=== PATIENT | male | born 1995 | race Caucasian/White ===

== ENCOUNTER 2016-04-06 03:08 | Emergency (ER) | payer OTHER ==
--- NOTE | 2016-04-06 05:21 | ED ORDER SUMMARY ---
..... Patient: CELINA DUBOIS OrderSheet [facility] VisitID: [id number] [place] [address] 21y, M Registration Date/Time: 04/06/2016 ORDER SHEET Weight: 65.7 kg (stated) Allergies: Iodine, Vicodin GENERAL ORDERS: Chest 2V Urgent (03:25 04/06/2016 Arianna Bowen) (Ack 3:28 IJurca ER Tech1) (4:45 JRomanelli R.N.) CT Head wo Cont Urgent (03:25 04/06/2016 Arianna Bowen) (Ack 3:28 IJurcbri ER Tech1) (4:45 JRomanelli R.N.) CT Sinus/Facial Bones wo Cont Urgent (03:04/06/2016 Arianna Bowen) (Ack 3:28 IJurca ER Tech1) (4:45 JRomanelli R.N.) Clavicle Left Urgent (03:04/06/2016 Arianna Bowen) (Ack 3:28 IJurca ER Tech1) (4:45 JRomanelli R.N.) Elbow 3 or 4V Left Urgent (03:26 04/06/2016 Arianna Bowen) (Ack 3:28 IJurca ER Tech1) (4:45 JRomanelli R.N.) Wrist 3 or 4V Left Urgent (03:26 04/06/2016 Arianna Bowen) (Ack 3:28 IJurca ER Tech1) (4:45 JRomanelli R.N.) Ice (03:27 04/06/2016 Arianna Bowen) (3:27 IJurca ER Tech1) Sling - arm (05:16 04/06/2016 Arianna Bowen) (5:19 HSoule) MEDICATION ORDERS: - (oxycodone 5 mg PO once now) (03:26 04/06/2016 Arianna Bowen) (4:01 omannahum R.N.) Toradol IM 60 mg (NOW) (04:30 04/06/2016 Arianna Bowen) (4:45 JRomannahum R.N.) IV FLUIDS: ORDER SHEET NOTES: [Electronically signed by Orlando Rivera R.N. (06:16 04/06/2016)] [Electronically signed by Macho Gonzales Dr. (10:38 04/07/2016)] [Electronically locked/signed by Orladno Rivera R.N. (06:16 04/06/2016)]
--- NOTE | 2016-04-06 05:21 | ED ORDER SUMMARY ---
..... Patient: CELINA DUBOIS OrderSheet [facility] VisitID: [id number] [place] [address] 21y, M Registration Date/Time: 04/06/2016 ORDER SHEET Weight: 65.7 kg (stated) Allergies: Iodine, Vicodin GENERAL ORDERS: Chest 2V Urgent (03:25 04/06/2016 Arianna Bowen) (Ack 3:28 IJurca ER Tech1) (4:45 JRomanelli R.N.) CT Head wo Cont Urgent (03:25 04/06/2016 Arianna Bowen) (Ack 3:28 IJurcbri ER Tech1) (4:45 JRomanelli R.N.) CT Sinus/Facial Bones wo Cont Urgent (03:04/06/2016 Arianna Bowen) (Ack 3:28 IJurca ER Tech1) (4:45 JRomanelli R.N.) Clavicle Left Urgent (03:04/06/2016 Arianna Bowen) (Ack 3:28 IJurca ER Tech1) (4:45 JRomanelli R.N.) Elbow 3 or 4V Left Urgent (03:26 04/06/2016 Arianna Bowen) (Ack 3:28 IJurca ER Tech1) (4:45 JRomanelli R.N.) Wrist 3 or 4V Left Urgent (03:26 04/06/2016 Arianna Bowen) (Ack 3:28 IJurca ER Tech1) (4:45 JRomanelli R.N.) Ice (03:27 04/06/2016 Arianna Bowen) (3:27 IJurca ER Tech1) Sling - arm (05:16 04/06/2016 Arianna Bowen) (5:19 HSoule) MEDICATION ORDERS: - (oxycodone 5 mg PO once now) (03:26 04/06/2016 Arianna Bowen) (4:01 omannahum R.N.) Toradol IM 60 mg (NOW) (04:30 04/06/2016 Arianna Bowen) (4:45 JRomannahum R.N.) IV FLUIDS: ORDER SHEET NOTES: [Electronically signed by Orlando Rivera R.N. (06:16 04/06/2016)] [Electronically signed by Macho Gonzales Dr. (10:38 04/07/2016)] [Electronically locked/signed by Orlando Rivera R.N. (06:16 04/06/2016)]
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
--- NOTE | 2016-04-07 10:39 | ED MAR SUMMARY ---
..... Medication Administration Record [facility] [address] [place] [address] Patient: CELINA DUBOIS Visit ID: [id number] 21y, M Weight: 65.7 kg Height/Length: 66 in BMI: 23.4 ALLERGIES: Iodine, Vicodin Given 03:55 04/06/2016 Orlando Rivera RKrzysztofN. Medication Administered: Oxycodone *, Dose: 5 mg * PO. Medication Ordered: - (oxycodone 5 mg PO once now). Given 04:30 04/06/2016 Orlando Rivera, R.N. Medication Administered: TORADOL [IM] (KETOROLAC TROMETHAMINE), Dose: 60 mg IM. Medication Ordered: Toradol IM 60 mg (NOW).
--- NOTE | 2016-04-07 10:39 | ED MED RECONCILIATION SUMMARY ---
Patient: CELINA DUBOIS Medication Reconciliation Report [facility] VisitID: [id number] [place] [address] 21y, M Registration Date/Time: 04/06/2016 Weight: 65.7 kg Height/Length: 66 in. BMI: 23.4 ALLERGIES: Iodine, Vicodin The patient's Home Medications are listed below: NONE. The source(s) of the original Home Medication information: patient The following Medications were given to the patient in the Emergency Department: Oxycodone PO 5 mg, administered: 04/06/2016 3:55:00 AM Toradol [IM] IM 60 mg, administered: 04/06/2016 4:30:00 AM The following Medications were prescribed to the patient: Motrin 600 mg tablets: take 1 tablet orally for 3 days. No refill. Substitution is permissible.(Take every 6 hours while awake for 3 days. Then as needed for pain and swelling. Take with food.) -- Macho Gonzales Dr. Percocet 5 mg/325 mg: take 1 tablet orally every 6 hours as needed for pain. Dispense twelve (12). No refill. Substitution is permissible.(Do not mix with alcohol) -- Macho Gonzales Dr.
--- NOTE | 2016-04-07 10:39 | ED MED RECONCILIATION SUMMARY ---
Patient: CELINA DUBOIS Medication Reconciliation Report [facility] VisitID: [id number] [place] [address] 21y, M Registration Date/Time: 04/06/2016 Weight: 65.7 kg Height/Length: 66 in. BMI: 23.4 ALLERGIES: Iodine, Vicodin The patient's Home Medications are listed below: NONE. The source(s) of the original Home Medication information: patient The following Medications were given to the patient in the Emergency Department: Oxycodone PO 5 mg, administered: 04/06/2016 3:55:00 AM Toradol [IM] IM 60 mg, administered: 04/06/2016 4:30:00 AM The following Medications were prescribed to the patient: Motrin 600 mg tablets: take 1 tablet orally for 3 days. No refill. Substitution is permissible.(Take every 6 hours while awake for 3 days. Then as needed for pain and swelling. Take with food.) -- Macho Gonzales Dr. Percocet 5 mg/325 mg: take 1 tablet orally every 6 hours as needed for pain. Dispense twelve (12). No refill. Substitution is permissible.(Do not mix with alcohol) -- Macho Gonzales Dr.
--- NOTE | 2016-04-07 10:39 | ED MAR SUMMARY ---
..... Medication Administration Record [facility] [address] [place] [address] Patient: CELINA DUBOIS Visit ID: [id number] 21y, M Weight: 65.7 kg Height/Length: 66 in BMI: 23.4 ALLERGIES: Iodine, Vicodin Given 03:55 04/06/2016 Orlando Rivera RKrzysztofN. Medication Administered: Oxycodone *, Dose: 5 mg * PO. Medication Ordered: - (oxycodone 5 mg PO once now). Given 04:30 04/06/2016 Orlando Rivera, R.N. Medication Administered: TORADOL [IM] (KETOROLAC TROMETHAMINE), Dose: 60 mg IM. Medication Ordered: Toradol IM 60 mg (NOW).
== END 2016-04-06 05:25 | disposition home or self-care (01) ==
LOC: ED SRH 03:08
DX: S40.012A Contusion of left shoulder, initial encounter (principal); S50.02XA Contusion of left elbow, initial encounter; S00.83XA Contusion of other part of head, initial encounter; R41.3 Other amnesia; Y04.0XXA Assault by unarmed brawl or fight, initial encounter; Z88.5 Allergy status to narcotic agent; Z91.041 Radiographic dye allergy status; Y93.89 Activity, other specified; Y99.9 Unspecified external cause status; Y92.29 Other specified public building as the place of occurrence of the external cause